=== PATIENT | female | born 1955 | race Caucasian/White ===

== ENCOUNTER 2018-09-24 05:12 | Emergency (ER) | payer OTHER ==
[~2018-09-24] VITALS: Ht 157.5 cm; Wt 72.6 kg
[~2018-09-24 05:12] MED LIST: ADULT LOW DOSE81 MG PO; ASMANEX; CALCIUM 600 +1 EAC1; COZAAR 50 MG TA50 M2 PO; EVISTA; HYDROCHLOROTH12.5 MG; LISINOPRIL40 MG; POTASSIUM; POTASSIUM20 PO; PREVACID15 MG PO; SORINE 80 MG TA80 M1 PO; SOTALOL 120 MG120 M1 PO; SYNTHROID100 MCG PO; SYNTHROID112 MCG PO; SYNTHROID125 MCG; TAMBOCOR 100 M100 M1 PO; TAMBOCOR 50 MG50 MG; TOPROL XL50 MG
[2018-09-24] MEDS ORDERED: PRILOSEC 20 MG20 MG PO (05:23)
[2018-09-24] MEDS ORDERED: FLECAINIDE ACET50 M1 PO (05:23)
[2018-09-24] MEDS ORDERED: LOPRESSOR25 PO (05:24)
[2018-09-24 07:04] VITALS: BP 159/64
== END 2018-09-24 07:04 | disposition home or self-care (01) ==
LOC: M.ERS 05:12
DX: S05.12XA Contusion of eyeball and orbital tissues, left eye, initial encounter (principal); I10 Essential (primary) hypertension; E03.9 Hypothyroidism, unspecified; I48.91 Unspecified atrial fibrillation; Z90.721 Acquired absence of ovaries, unilateral; Z91.040 Latex allergy status; Z88.2 Allergy status to sulfonamides; W18.30XA Fall on same level, unspecified, initial encounter; Y93.89 Activity, other specified; Y92.89 Other specified places as the place of occurrence of the external cause; Y99.8 Other external cause status